=== PATIENT | female | born 2000 | race Hispanic/Latino ===

== ENCOUNTER 2021-11-22 16:47 | Inpatient (IN) | payer OTHER ==
[~2021-11-22] VITALS: Ht 160 cm; Wt 64.2 kg
[2021-11-22] MEDS ORDERED: AZO-95TA3 PO (17:03)
[2021-11-22 17:45] LABS: BASO % 0.1 % (0.0-1.0); HEMATOCRIT 39.7 % (36.0-47.0); LYMPH # 0.4 10^3/uL (1.5-5.0); MEAN CORPUSCULAR HEMOGLOBIN 30.2 pg (27.0-33.0); MEAN CORPUSCULAR HGB CONC 32.7 g/dl (32.0-36.5); MEAN CORPUSCULAR VOLUME 92.1 fl (80.0-96.0); MONO # 0.3 10^3/uL (0.0-0.8); MONO % 4.1 % (2.0-8.0); NEUTROPHILS # 7.3 10^3/uL (1.5-8.5); NEUTROPHILS % 90.4 % (36.0-66.0); PLATELET COUNT, AUTOMATED 184 10^3/uL (150-450); RED BLOOD COUNT 4.31 10^6/uL (4.00-5.40); WHITE BLOOD COUNT 8.1 10^3/uL (4.0-10.0)
[2021-11-22 17:54] LABS: BLOOD UREA NITROGEN 16 MG/DL (7-18); CALCIUM LEVEL 9.7 MG/DL (8.5-10.1); CARBON DIOXIDE LEVEL 27 MEQ/L (21-32); CHLORIDE LEVEL 105 MEQ/L (98-107); CREATININE FOR GFR 1.01 MG/DL (0.55-1.30); GLOMERULAR FILTRATION RATE > 60.0 (>60); GLUCOSE, FASTING 129 MG/DL (70-100); POTASSIUM SERUM 3.8 MEQ/L (3.5-5.1); SODIUM LEVEL 139 MEQ/L (136-145)
[2021-11-22] MEDS ORDERED: ACETAMINOPHEN 325 MG TAB PO ONE (18:55)
[2021-11-22] MEDS ORDERED: ONDANSETRON 4MG/2ML VIAL As Ordered ONE (19:48)
[2021-11-22] MEDS ORDERED: NS 1,000 ML IV ONE (19:50)
[2021-11-22] MEDS ORDERED: ONDANSETRON 4MG/2ML VIAL IV ONE (19:50)
[2021-11-22 20:27] LABS: HCG, SERUM QUALITATIVE NEGATIVE (NEGATIVE)
[2021-11-22] MEDS ORDERED: cefTRIAXone SOD 1 GM in D5W MINI-BAG PLUS 50 ML IV ONE (22:05)
[2021-11-22 23:57] LABS: RSV AMPLIFICATION NEGATIVE (NEGATIVE)
[2021-11-23] VITALS (43 sets, daily range): BP systolic 80–149; BP diastolic 34–76
[2021-11-23] MEDS ORDERED: IBUPROFEN 800 MG TAB PO ONE
[2021-11-23] MEDS ORDERED: VITMTA PO (00:58)
[2021-11-23] MEDS ORDERED: VITA100093 PO (00:58)
[2021-11-23] MEDS ORDERED: AZO-95TA3 PO (00:58)
[2021-11-23] MEDS ORDERED: HOME MED LIST COMPLETE! XX SCH (01:00)
[2021-11-23] MEDS ORDERED: NS 1,000 ML IV SCH (01:25)
[2021-11-23] MEDS ORDERED: KETOROLAC 30 MG/ML 1ML VIAL IV PRN (01:25)
[2021-11-23] MEDS ORDERED: MAALOX 30 ML SUSP *UDC PO PRN (01:25)
[2021-11-23] MEDS ORDERED: NS 1,000 ML IV ONE ×4 (01:25→13:10)
[2021-11-23] MEDS ORDERED: NS 500 ML IV ONE (06:15)
[2021-11-23] MEDS: ACETAMINOPHEN TAB 650MG DOSE (2X325MG) PO PRN ×3 (06:17→19:57)
[2021-11-23] MEDS ORDERED: HYDROCORTISONE 100 MG/2 ML VIAL (J1720 PER 1) IV ONE (06:35)
[2021-11-23] MEDS: ONDANSETRON 4MG/2ML VIAL IV PRN ×2 (06:46→18:39)
[2021-11-23] MEDS ORDERED: NOREPINEPHRINE BITARTRATE 8 MG in D5W 492 ML IV SCH ×3 (07:30→13:00)
[2021-11-23 08:00] LABS: BASO % 0.1 % (0.0-1.0); HEMATOCRIT 32.3 % (36.0-47.0); LYMPH # 0.2 10^3/uL (1.5-5.0); LYMPH % 1.5 % (24.0-44.0); MEAN CORPUSCULAR HEMOGLOBIN 31.2 pg (27.0-33.0); MEAN CORPUSCULAR HGB CONC 33.7 g/dl (32.0-36.5); MEAN CORPUSCULAR VOLUME 92.6 fl (80.0-96.0); MONO # 0.6 10^3/uL (0.0-0.8); MONO % 3.9 % (2.0-8.0); NEUTROPHILS # 13.3 10^3/uL (1.5-8.5); NEUTROPHILS % 93.6 % (36.0-66.0); PLATELET COUNT, AUTOMATED 128 10^3/uL (150-450); RED BLOOD COUNT 3.49 10^6/uL (4.00-5.40); WHITE BLOOD COUNT 14.2 10^3/uL (4.0-10.0)
[2021-11-23 08:04] LABS: HEMOGLOBIN 10.9 g/dl (12.0-15.5)
[2021-11-23 08:21] LABS: ALBUMIN 2.7 GM/DL (3.2-5.2); ALT/SGPT 23 U/L (12-78); BILIRUBIN,TOTAL 0.5 MG/DL (0.2-1.0); BLOOD UREA NITROGEN 11 MG/DL (7-18); CALCIUM LEVEL 7.7 MG/DL (8.5-10.1); CARBON DIOXIDE LEVEL 24 MEQ/L (21-32); CHLORIDE LEVEL 113 MEQ/L (98-107); CREATININE FOR GFR 0.93 MG/DL (0.55-1.30); GLOMERULAR FILTRATION RATE > 60.0 (>60); GLUCOSE, FASTING 99 MG/DL (70-100); POTASSIUM SERUM 3.4 MEQ/L (3.5-5.1); SODIUM LEVEL 143 MEQ/L (136-145); TOTAL PROTEIN 5.3 GM/DL (6.4-8.2)
[2021-11-23] MEDS ORDERED: cefTRIAXone SOD 1 GM in D5W MINI-BAG PLUS 50 ML IV SCH (09:00)
[2021-11-23] MEDS: NS 1,000 ML IV SCH ×2 (09:02→15:07)
[2021-11-23] MEDS ORDERED: POTASSIUM CHLORIDE 10MEQ SR TABLET PO ONE (13:55)
[2021-11-23] MEDS: PIPERACILLIN/TAZOBACTAM SOD 3.375 GM in D5W MINI-BAG PLUS 50 ML IV SCH ×2 (16:10→21:33)
[2021-11-24] VITALS (7 sets, daily range): BP systolic 87–109; BP diastolic 52–71
[2021-11-24] MEDS: NS 1,000 ML IV SCH ×2 (02:00→04:40)
[2021-11-24] MEDS: ACETAMINOPHEN TAB 650MG DOSE (2X325MG) PO PRN ×3 (02:14→16:24)
[2021-11-24] MEDS: ONDANSETRON 4MG/2ML VIAL IV PRN ×4 (02:17→21:05)
[2021-11-24] MEDS: PIPERACILLIN/TAZOBACTAM SOD 3.375 GM in D5W MINI-BAG PLUS 50 ML IV SCH ×4 (04:35→21:20)
[2021-11-24 04:45] LABS: HEMATOCRIT 30.3 % (36.0-47.0); MEAN CORPUSCULAR HEMOGLOBIN 30.5 pg (27.0-33.0); MEAN CORPUSCULAR VOLUME 92.4 fl (80.0-96.0); PLATELET COUNT, AUTOMATED 127 10^3/uL (150-450); RED BLOOD COUNT 3.28 10^6/uL (4.00-5.40); WHITE BLOOD COUNT 12.3 10^3/uL (4.0-10.0)
[2021-11-24 05:03] LABS: BLOOD UREA NITROGEN 10 MG/DL (7-18); CALCIUM LEVEL 6.8 MG/DL (8.5-10.1); CARBON DIOXIDE LEVEL 22 MEQ/L (21-32); CHLORIDE LEVEL 115 MEQ/L (98-107); CREATININE FOR GFR 0.95 MG/DL (0.55-1.30); GLOMERULAR FILTRATION RATE > 60.0 (>60); GLUCOSE, FASTING 106 MG/DL (70-100); SODIUM LEVEL 142 MEQ/L (136-145)
[2021-11-24] MEDS ORDERED: POTASSIUM CHLORIDE 10MEQ SR TABLET PO ONE (08:45)
[2021-11-24] MEDS: KCL 20MEQ IN D5/NS 1000ML 1,000 ML IV SCH ×3 (08:59→21:20)
[2021-11-25] VITALS (7 sets, daily range): BP systolic 111–137; BP diastolic 63–85
[2021-11-25] MEDS: KCL 20MEQ IN D5/NS 1000ML 1,000 ML IV SCH (04:04)
[2021-11-25] MEDS: PIPERACILLIN/TAZOBACTAM SOD 3.375 GM in D5W MINI-BAG PLUS 50 ML IV SCH ×2 (04:04→20:02)
[2021-11-25] MEDS: ONDANSETRON 4MG/2ML VIAL IV PRN (04:04)
[2021-11-25 06:45] LABS: HEMATOCRIT 29.9 % (36.0-47.0); MEAN CORPUSCULAR HEMOGLOBIN 30.5 pg (27.0-33.0); MEAN CORPUSCULAR HGB CONC 33.4 g/dl (32.0-36.5); MEAN CORPUSCULAR VOLUME 91.2 fl (80.0-96.0); PLATELET COUNT, AUTOMATED 140 10^3/uL (150-450); RED BLOOD COUNT 3.28 10^6/uL (4.00-5.40); WHITE BLOOD COUNT 8.8 10^3/uL (4.0-10.0)
[2021-11-25 07:21] LABS: BLOOD UREA NITROGEN 4 MG/DL (7-18); CALCIUM LEVEL 7.5 MG/DL (8.5-10.1); CARBON DIOXIDE LEVEL 23 MEQ/L (21-32); CHLORIDE LEVEL 111 MEQ/L (98-107); GLOMERULAR FILTRATION RATE > 60.0 (>60); GLUCOSE, FASTING 145 MG/DL (70-100); POTASSIUM SERUM 3.8 MEQ/L (3.5-5.1); SODIUM LEVEL 139 MEQ/L (136-145)
[2021-11-25] MEDS ORDERED: CEPH500C PO (08:04)
[2021-11-25] MEDS ORDERED: CALCIUM GLUCONATE 1,000 MG in D5W MINI-BAG PLUS 100 ML IV ONE (09:00)
[2021-11-25] MEDS: ACETAMINOPHEN TAB 650MG DOSE (2X325MG) PO PRN ×3 (09:48→20:21)
[2021-11-25] MEDS: CEPHALEXIN 500 MG CAP PO SCH ×4 (09:48→17:59)
[2021-11-25] MEDS ORDERED: PROMETHAZINE 25MG/ML 1ML VIAL IV PRN ×2 (10:00→16:35)
[2021-11-25] MEDS ORDERED: diphenhydrAMINE 50MG/ML VIAL (J1200) IV ONE (18:40)
[2021-11-25] MEDS ORDERED: diphenhydrAMINE 50MG/ML VIAL (J1200) As Ordered ONE (18:40)
[2021-11-26 00:07] VITALS: BP 138/80
[2021-11-26] MEDS: PIPERACILLIN/TAZOBACTAM SOD 3.375 GM in D5W MINI-BAG PLUS 50 ML IV SCH (01:53)
[2021-11-26 04:05] VITALS: BP 141/88
[2021-11-26] MEDS: ACETAMINOPHEN TAB 650MG DOSE (2X325MG) PO PRN ×2 (04:17→11:55)
[2021-11-26 07:05] LABS: HEMATOCRIT 30.6 % (36.0-47.0); HEMOGLOBIN 10.3 g/dl (12.0-15.5); MEAN CORPUSCULAR HEMOGLOBIN 30.2 pg (27.0-33.0); MEAN CORPUSCULAR HGB CONC 33.7 g/dl (32.0-36.5); MEAN CORPUSCULAR VOLUME 89.7 fl (80.0-96.0); PLATELET COUNT, AUTOMATED 157 10^3/uL (150-450); RED BLOOD COUNT 3.41 10^6/uL (4.00-5.40)
[2021-11-26 07:32] LABS: BLOOD UREA NITROGEN 7 MG/DL (7-18); CALCIUM LEVEL 8.8 MG/DL (8.5-10.1); CARBON DIOXIDE LEVEL 26 MEQ/L (21-32); CHLORIDE LEVEL 108 MEQ/L (98-107); CREATININE FOR GFR 0.75 MG/DL (0.55-1.30); GLOMERULAR FILTRATION RATE > 60.0 (>60); GLUCOSE, FASTING 84 MG/DL (70-100); POTASSIUM SERUM 3.6 MEQ/L (3.5-5.1); SODIUM LEVEL 141 MEQ/L (136-145)
[2021-11-26 08:19] VITALS: BP 140/86
[2021-11-26] MEDS ORDERED: BACTRIM 160MG/800MG DS TAB PO SCH (09:00)
[2021-11-26 12:46] VITALS: BP 140/78
[2021-11-26] MEDS ORDERED: CVS1CAP2 PO (13:55)
[2021-11-26] MEDS ORDERED: ONDA4TAB6 PO (13:55)
[2021-11-26] MEDS ORDERED: BACTDSTA PO (13:55)
== END 2021-11-26 15:39 | disposition home or self-care (01) | DRG 872 ==
LOC: M ED 16:47 → M ED INP 11-23 01:14 → M MSPAV 11-23 02:58 → M ICU 11-23 07:23 → M PCU 11-24 16:09
PROVIDERS: ADMIT Internal Medicine; ATTEND Internal Medicine
DX: A41.9 Sepsis, unspecified organism (principal); N10 Acute pyelonephritis; R65.20 Severe sepsis without septic shock

== ENCOUNTER → 2021-12-08 | Outpatient (REF) | payer OTHER ==
[~2021-12-08] MED LIST: AZO-95TA3 PO; BACTDSTA PO; CEPH500C PO; CVS1CAP2 PO; ONDA4TAB6 PO; VITA100093 PO; VITMTA PO
[2021-12-08 17:13] LABS: APPEARANCE, URINE CLEAR (CLEAR); BACTERIA, URINE AUTO NEGATIVE (NEGATIVE); BILIRUBIN, URINE AUTO NEGATIVE (NEGATIVE); BLOOD, URINE BLOOD NEGATIVE (NEGATIVE); COLOR, URINE YELLOW (YELLOW); GLUCOSE, URINE (UA) AUTO NEGATIVE (NEGATIVE); KETONE, URINE AUTO NEGATIVE (NEGATIVE); LEUKOCYTE ESTERASE, URINE AUTO NEGATIVE (NEGATIVE); NITRITE, URINE AUTO NEGATIVE (NEGATIVE); PROTEIN, URINE AUTO NEGATIVE (NEGATIVE); RBC, URINE AUTO 0 /HPF (0-3); SPECIFIC GRAVITY URINE AUTO 1.013 (1.002-1.035); SQUAMOUS EPITHELIAL CELL UR AU 3 /HPF (0-6); UROBILINOGEN, URINE AUTO 0.2 mg/dL (0.0-2.0); WBC, URINE AUTO 1 /HPF (0-3)
== END ==
LOC: M SMT 16:44
PROVIDERS: ATTEND Urology
DX: N12 Tubulo-interstitial nephritis, not specified as acute or chronic (principal)
CPT/HCPCS: 81001; 87086; G0463

== ENCOUNTER 2022-06-06 12:10 | Emergency (ER) | payer OTHER ==
[~2022-06-06] VITALS: Ht 160 cm; Wt 62.5 kg
[2022-06-06 16:37] VITALS: BP 108/61
== END 2022-06-06 16:42 | disposition home or self-care (01) ==
LOC: M ED 12:10
DX: S06.0X0A Concussion without loss of consciousness, initial encounter (principal); M25.511 Pain in right shoulder; V48.0XXA Car driver injured in noncollision transport accident in nontraffic accident, initial encounter; F41.9 Anxiety disorder, unspecified; Z79.899 Other long term (current) drug therapy; Z88.1 Allergy status to other antibiotic agents

== ENCOUNTER → 2022-11-15 | Outpatient (REF) | payer OTHER ==
[2022-11-15 14:43] LABS: APPEARANCE, URINE HAZY (CLEAR); BACTERIA, URINE AUTO 2+ (NEGATIVE); BILIRUBIN, URINE AUTO NEGATIVE (NEGATIVE); BLOOD, URINE BLOOD 1+ (NEGATIVE); COLOR, URINE YELLOW (YELLOW); GLUCOSE, URINE (UA) AUTO NEGATIVE (NEGATIVE); KETONE, URINE AUTO NEGATIVE (NEGATIVE); LEUKOCYTE ESTERASE, URINE AUTO 3+ (NEGATIVE); MUCUS, URINE SMALL (NEGATIVE); NITRITE, URINE AUTO NEGATIVE (NEGATIVE); PROTEIN, URINE AUTO NEGATIVE (NEGATIVE); RBC, URINE AUTO 5 /HPF (0-3); SPECIFIC GRAVITY URINE AUTO 1.018 (1.002-1.035); SQUAMOUS EPITHELIAL CELL UR AU 8 /HPF (0-6); UROBILINOGEN, URINE AUTO 0.2 mg/dL (0.0-2.0); WBC, URINE AUTO 103 /HPF (0-3)
== END ==
LOC: M SMT 13:10 → M LAB REF 13:10
PROVIDERS: ATTEND Physician Assistant
DX: R30.0 Dysuria (principal)

== ENCOUNTER → 2023-06-26 | Outpatient (CLI) | payer OTHER | LOC: M RAD 10:39 | PROVIDERS: ATTEND Physician Assistant Medical | DX: R51.9 Headache, unspecified (principal) ==

== ENCOUNTER 2024-06-05 18:05 | Emergency (ER) | payer OTHER ==
[~2024-06-05] VITALS: Ht 157.5 cm; Wt 63.4 kg
[~2024-06-05 18:05] MED LIST changes: +ONDA-282 PO; -ONDA4TAB6 PO
[2024-06-05] MEDS ORDERED: METR-265 (18:13)
[2024-06-06] MEDS: FAMOTIDINE 20 MG TAB PO ONE
[2024-06-06 01:33] LABS: KETONE, URINE AUTO RFX TRACE mg/dL (NEGATIVE); NITRITE, URINE AUTO RFX NEGATIVE (NEGATIVE); RBC, URINE AUTO RFX 1 /HPF (0-3); SQUAM EPITHELIAL CELL UR AURFX 3 /HPF (0-6); WBC, URINE AUTO RFX 5 /HPF (0-3)
[2024-06-06 02:45] LABS: LEUKOCYTE ESTERASE UR AUTO RFX 3+ (NEGATIVE)
[2024-06-06 05:46] VITALS: BP 124/88; TEMP 98.8; O2SAT 98
== END 2024-06-06 05:50 | disposition home or self-care (01) ==
LOC: M ED 18:05
DX: R10.9 Unspecified abdominal pain (principal); Z76.0 Encounter for issue of repeat prescription; F10.10 Alcohol abuse, uncomplicated; Z88.1 Allergy status to other antibiotic agents; Z79.810 Long term (current) use of selective estrogen receptor modulators (SERMs); Z79.899 Other long term (current) drug therapy